=== PATIENT | female | born 1985 | race Caucasian/White ===

== ENCOUNTER 2017-10-21 04:32 | Emergency (ER) | payer MEDICAID, OTHER ==
[2017-10-21] MEDS ORDERED: methylPREDNISolone Sodium Succinate 125 MG/2 ML SDV IM ONE (04:41)
[2017-10-21] MEDS ORDERED: diphenhydrAMINE 25 MG Cap PO ONE (04:41)
[2017-10-21] MEDS ORDERED: oxyCODONE 5 MG Tab PO ONE (04:48)
--- NOTE | 2017-10-21 04:55 | EDM.PDOC ---
ED HPI GENERAL MEDICAL PROBLEM - General Chief Complaint: Skin Complaint Stated Complaint: shingles discomfort Time Seen by Provider: 10/21/17 04:41 Source of Information: Reports: Patient History Limitations: Reports: No Limitations - History of Present Illness INITIAL COMMENTS - FREE TEXT/NARRATIVE: Patient presents with complaints of shingles pain, outbreak and itching to the area. Was seen in clinic and started on Valcyclovir by Esperanza Mantilla several days ago. Was given hydrocodon 5 mg tablets which do not help with the pain. She is unable to sleep due to itching and pain. She has no other complaints this morning. Rates pain a 7/10. Rash to lower lateral right flank Onset: Gradual Duration: Intermittent Location: Reports: Abdomen, Back Quality: Reports: Burning Severity: Moderate Improves with: Reports: Medication Associated Symptoms: Reports: No Other Symptoms Generalized Pain Score (Numeric/FACES): 10 - Related Data Allergies Allergy/AdvReac Type Severity Reaction Status Date / Time metronidazole [From Flagyl] Allergy Rash Verified 10/21/17 04:33 Home Meds: Home Meds Hydrocodone/Acetaminophen [Hydrocodon-Acetaminophen 5-325] 1 each PO BEDTIME PRN 10/21/17 [History] busPIRone [Buspar] 7.5 mg PO TID 10/21/17 [History] valACYclovir HCl [valACYclovir] 1 tab PO TID 10/21/17 [History] Past Medical History - Past Health History Medical/Surgical History: Denies Medical/Surgical History Gastrointestinal History: Reports: Other (See Below) Other Gastrointestinal History: crohns Psychiatric History: Reports: Anxiety, Depression Dermatologic History: Reports: Other (See Below) Other Dermatologic History: shingles Social & Family History - Tobacco Use Smoking Status *Q: Current Every Day Smoker Years of Tobacco use: 17 Packs/Tins Daily: 0.5 ED ROS GENERAL - Review of Systems Review Of Systems: ROS reveals no pertinent complaints other than HPI. ED EXAM, SKIN/RASH Exam: See Below Exam Limited By: No Limitations General Appearance: Alert, WD/WN, Mild Distress Eye Exam: Bilateral Eye: EOMI, Normal Inspection, PERRL Head: Atraumatic, Normocephalic Respiratory/Chest: No Respiratory Distress, Lungs Clear, Normal Breath Sounds, No Accessory Muscle Use, Chest Non-Tender Cardiovascular: Normal Peripheral Pulses, Regular Rate, Rhythm, No Edema, No Gallop, No JVD, No Murmur, No Rub Neurological: Alert, Oriented, CN II-XII Intact, Normal Cognition, Normal Gait, Normal Reflexes, No Motor/Sensory Deficits Psychiatric: Normal Affect, Anxious Skin: Rash (shingles rash along right lateral abdomen/back at approximately the t10-t11 dermatomes, linear with pustules present) Location, Skin: Abdomen, Back Characteristics: Linear, Bullous, Urticarial, Erythematous Associated features: Tenderness, Inflammation, Crusting, Weeping Course - Vital Signs Last Recorded V/S: Last Vital Signs Temp 35.9 C 10/21/17 04:35 Pulse 101 H 10/21/17 04:35 Resp 20 10/21/17 04:35 BP 141/89 H 10/21/17 04:35 Pulse Ox 100 10/21/17 04:35 - Orders/Labs/Meds Meds: Medications Discontinued Medications Generic Name Dose Route Start Last Admin Trade Name Freq PRN Reason Stop Dose Admin Diphenhydramine HCl 25 mg 10/21/17 04:41 10/21/17 04:45 Benadryl PO 10/21/17 04:42 25 mg ONETIME ONE Administration Methylprednisolone Sodium Succinate 125 mg 10/21/17 04:41 10/21/17 04:48 Solu-Medrol IM 10/21/17 04:42 125 mg ONETIME ONE Administration Oxycodone HCl 10 mg 10/21/17 04:48 Oxycodone PO 10/21/17 04:49 ONETIME ONE Departure - Departure Time of Disposition: 05:16 Disposition: Home, Self-Care 01 Condition: Good Clinical Impression: Shingles outbreak - Discharge Information Instructions: Shingles, [id number] Additional Instructions: Please read the instructions I provided on shingles Take benadryl as needed for the itching Complete your Valcyclovir the Esperanza prescribed Take the medrol dose pack as directed Take the oxycodone as prescribed Follow up with your primary doctor as needed for symptom management - Problem List & Annotations (1) Shingles outbreak SNOMED Code(s): 8027782 Code(s): B02.9 - ZOSTER WITHOUT COMPLICATIONS Status: Acute Priority: Medium Current Visit: Yes Qualifiers: Herpes zoster complications: without complications Qualified Code(s): B02.9 - Zoster without complications - Problem List Review Problem List Initiated/Reviewed/Updated: Yes - Assessment/Plan Assessment:: Herpes zoster outbreak Plan: Please read the instructions I provided on shingles Take benadryl as needed for the itching Complete your Valcyclovir the Esperanza prescribed Take the medrol dose pack as directed Take the oxycodone as prescribed Follow up with your primary doctor as needed for symptom management
== END 2017-10-21 05:23 | disposition home or self-care (01) ==
LOC: VM.ED 04:32
DX: B02.9 Zoster without complications (principal); F41.9 Anxiety disorder, unspecified; F32.9 Major depressive disorder, single episode, unspecified; Z79.899 Other long term (current) drug therapy; F17.210 Nicotine dependence, cigarettes, uncomplicated; Z88.1 Allergy status to other antibiotic agents
CPT/HCPCS: 96372; 99283; A9270; J2930